=== PATIENT | male | born 2000 | race Caucasian/White ===

== ENCOUNTER 2019-02-08 08:37 | Emergency (ER) ==
[2019-02-08 08:42] VITALS: BP 132/74; TEMP 96.9; BMI 19.2
--- NOTE | 2019-02-08 09:20 | DI ---
EXAM: Three views of the left hand HISTORY: Pain, fall TECHNIQUE: AP lateral, oblique views of the left hand were obtained. FINDINGS: No acute fractures are seen. There is anatomic alignment. The soft tissues are normal. IMPRESSION: No acute fracture dislocation seen within the left hand.
--- NOTE | 2019-02-08 09:23 | DI ---
EXAM: Five views of the left wrist HISTORY: Pain, fall TECHNIQUE: AP lateral, oblique and ulnar and radial deviation views of the left wrist were obtained. FINDINGS: No acute fractures are seen. The distal radius and ulna appear intact. There is a normal alignment of the carpal bones. IMPRESSION: No acute fracture dislocation seen within the left wrist.
--- NOTE | 2019-02-08 09:31 | ED.PDOC ---
General ED Provider: Dr. WILLAM BOO Chief Complaint: Wrist Pain/Injury Stated Complaint: hand wrist pain after a fallx 1 day no neck or back pain Time Seen by Physician: 08:40 (seen with may at all times ) Mode of Arrival: Walk-In Information Source: Patient Exam Limitations: No limitations Primary Care Provider: TATE SILVA Nursing and Triage Documentation Reviewed and Agree: Yes Does patient meet sepsis criteria?: No System Inflammatory Response Syndrome: Not Applicable Sepsis Protocol: For patient's 13 years and over: Temp is 96.8 and below OR 101 and greater Pulse >90 BPM Resp >20/minute Acutely Altered Mental Status Are patient's symptoms suggestive of a new infection, such as: -Pneumonia -Skin, Soft Tissue -Endocarditis -UTI -Bone, Joint Infection -Implantable Device -Acute Abdominal Infection -Wound Infection -Meningitis -Blood Stream Catheter Infection -Unknown Musculoskeletal Complaint Exam - Hand/Wrist Complaint/Exam Location of Pain: Reports: Left, Hand, Wrist Mechanism of Injury: Reports: Trauma Onset/Duration: 1 day Symptoms Are: Still present Onset of Pain: Reports: Immediate Initial Severity: Mild Current Severity: Mild Location: Reports: Discrete Character: Reports: Aching Alleviating: Reports: Rest Aggravating: Reports: Movement Associated Signs and Symptoms: Denies: Swelling, Redness, Bruising, Fever, Weakness, Numbness, Tingling Dominant Hand: Right Related Surgical History: Reports: None Hand/Wrist Findings: Absent: Swelling, Ecchymosis, Abnormal contour, Rotation, Ligamentous instability, Tinel's Sign, Phalen's Sign, Laceration, Nail avulsion , Subungal hematoma, Erythema, Warmth, Blisters Compartment Syndrome Risk Factors: Present: Pain Differential Diagnoses: Closed Fracture, Sprain, Strain Review of Systems - Review Of Systems Constitutional: Reports: No symptoms Eyes: Reports: No symptoms Ears, Nose, Mouth, Throat: Reports: No symptoms Respiratory: Reports: No symptoms Cardiac: Reports: No symptoms GI: Reports: No symptoms : Reports: No symptoms Musculoskeletal: Reports: Other (hand pain) Skin: Reports: No symptoms Neurological: Reports: No symptoms Endocrine: Reports: No symptoms Hematologic/Lymphatic: Reports: No symptoms All Other Systems: Reviewed and Negative Past Medical History - Past Medical History Previously Healthy: Yes Endocrine: Reports: None Cardiovascular: Reports: None Respiratory: Reports: None Hematological: Reports: None Gastrointestinal: Reports: None Genitourinary: Reports: None Neuro/Psych: Reports: None Musculoskeletal: Reports: None Cancer: Reports: None - Surgical History General Surgical History: Reports: None - Family History Family History: Reports: None - Social History Smoking Status: Current every day smoker, Light tobacco smoker Hx Substance Use: No Alcohol Screening: None Physical Exam - Physical Exam Appearance: Well-appearing, No pain distress, Well-nourished Eyes: DINAH, EOMI, Conjunctiva clear ENT: Ears normal, Nose normal, Oropharynx normal Respiratory: Airway patent, Breath sounds clear, Breath sounds equal, Respirations nonlabored Cardiovascular: RRR, Pulses normal, No rub, No murmur GI/: Soft, Nontender, No masses, Bowel sounds normal, No Organomegaly Musculoskeletal: Normal strength, ROM intact, No edema, No calf tenderness Skin: Warm, Dry, Normal color Neurological: Sensation intact, Motor intact, Reflexes intact, Cranial nerves intact, Alert, Oriented Psychiatric: Affect appropriate, Mood appropriate Interpretation - Radiology Interpretation Radiology Interpretation By: Radiologist Radiology Results: No acute changes Critical Care Note - Critical Care Note Total Time (mins): 0 Course - Course Orders, Labs, Meds: Orders Category Date Time Status HAND, LEFT 3 VIEWS Stat RADS 02/08/19 08:48 Ordered WRIST, LEFT 3 VIEWS Stat RADS 02/08/19 08:48 Ordered Vital Signs: Temp Pulse Resp BP Pulse Ox 02/08/19 08:37 96.9 F L 66 20 132/74 98 Departure - Departure Time of Disposition: 09:30 (splinted by RN RECHECKED PULSES AND WAS NOTED TO BE WNL) Disposition: HOME SELF-CARE Discharge Problem: Pain in wrist, Injury of wrist, Hand pain, left Instructions: Hand Sprain (ED), Wrist Sprain (ED) Condition: Good Pt referred to PMD for follow-up: Yes IPMP verified?: No Allergies/Adverse Reactions: Allergies No Known Allergies Allergy (Unverified 02/08/19 08:43) Home Medications: Ambulatory Orders 1 [No Reported Medications] 02/08/19
== END 2019-02-08 09:35 | disposition home or self-care (01) ==
LOC: ED 08:37
DX: S69.92XA Unspecified injury of left wrist, hand and finger(s), initial encounter (principal); W19.XXXA Unspecified fall, initial encounter; F17.210 Nicotine dependence, cigarettes, uncomplicated
CPT/HCPCS: 99283